=== PATIENT | male | born 1960 | race African-American/Black ===

== ENCOUNTER 2017-02-01 14:41 | Emergency (ER) | payer MEDICARE, MEDICAID ==
[~2017-02-01] VITALS: Ht 182.9 cm; Wt 70.0 kg
[2017-02-01 14:55] VITALS: BP 139/80
== END 2017-02-01 21:42 | disposition left against medical advice (07) ==
LOC: ER 21:31
DX: Z53.21 Procedure and treatment not carried out due to patient leaving prior to being seen by health care provider (principal)